=== PATIENT | male | born 1940 | race Caucasian/White ===

== ENCOUNTER 2019-07-26 08:31 | Outpatient (CLI) | payer MEDICARE, BC, SELFPAY ==
[2019-07-26] VITALS (7 sets, daily range): PULSE 65–118; O2SAT 86–90
--- NOTE | ~2019-07-26 | CT_ITS ---
EXAMINATION:CT chest wo con DATE: 07/26/2019 10:11 INDICATION: Interstitial lung disease, unspecified. TECHNIQUE: Computed tomography (CT) of the chest was performed without intravenous contrast. Automate d exposure control and iterative reconstruction technique were employed. The dose-length product (DLP ) was 234.03 mGy-cm. COMPARISON: Chest CT 12/24/2018, 06/15/2010 FINDINGS: There is mild emphysema. The lung volumes are small. There are widespread peripheral reticu lar opacities in the lungs with areas of honeycombing. There are groundglass opacities and airspace o pacities and calcifications associated with interstitial opacities. There is a chronic 5 mm nodule in right upper lobe, likely benign. Calcified right lung nodules and calcified right hilar and mediasti nal lymph nodes are consistent with old granulomatous disease. No pleural effusion. The heart size is normal. There are coronary artery calcifications. No pericardial effusion. There are mildly enlarged noncalcified mediastinal and hilar lymph nodes, likely reactive. There is diffuse hepatic steatosis. There is severe cervical spondylosis and mild thoracic spondylosis. There is a chronic sclerotic les ion in in T3 vertebral body, likely benign. IMPRESSION: 1. Worsened diffuse lung disease, likely a combination of mild emphysema and chronic interstitial sandeep g disease in a pattern of usual interstitial pneumonia (UIP). Reviewed, dictated and finalized at location A. CAL VIDEOGRAPHER IMPRESSION: 1. Worsened diffuse lung disease, likely a combination of mild emphysema and ch ronic interstitial lung disease in a pattern of usual interstitial pneumonia (U IP).
--- NOTE | 2019-07-26 09:34 | PCRCNOTE ---
SPOKE TO ESTEFANY AT ALBERTINA'S OFFICE, SHE DOUBLE CHECKED THE ORDER, HE IS ONLY FOR HOME O2 EVAL TO REQUALIFY FOR HOME O2.
--- NOTE | 2019-07-26 09:47 | HOMEO2EVAL ---
Home Oxygen Evaluation RC: Home Oxygen (O2) Evaluation Start: 07/26/19 09:36 Freq: Status: Active Protocol: RPE Activity Type Activity Date Activity User E-Sign Co-Sign Detail Recorded Client Recorded Date Recorded By Document 07/26/19 09:15 [email or web address] [email or web address] 07/26/19 09:45 DJO Document 07/26/19 09:18 [email or web address] [email or web address] 07/26/19 09:45 DJO Document 07/26/19 09:20 [email or web address] [email or web address] 07/26/19 09:45 DJO Document 07/26/19 09:22 [email or web address] [email or web address] 07/26/19 09:45 DJO Document 07/26/19 09:24 [email or web address] [email or web address] 07/26/19 09:45 DJO Document 07/26/19 09:26 [email or web address] [email or web address] 07/26/19 09:45 DJO Document 07/26/19 09:30 [email or web address] [email or web address] 07/26/19 09:45 DJO 07/26/19 07/26/19 07/26/19 09:15 09:18 09:20 Home O2 Evaluation Test Phase Resting Resting Resting Oxygen Delivery Room Air Nasal Cannula Nasal Cannula Oxygen Flow Rate (L/min) 1 2 Pulse Oximetry (90-100 %) 87 L 87 L 90 Pulse Rate (60-100 beats/min) 65 Home Oxygen Evaluation Comments Treatment Charges O2 Evaluation 07/26/19 07/26/19 07/26/19 09:22 09:24 09:26 Home O2 Evaluation Test Phase Exercise Exercise Exercise Oxygen Delivery Nasal Cannula Nasal Cannula Nasal Cannula Oxygen Flow Rate (L/min) 2 3 4 Pulse Oximetry (90-100 %) 86 L 87 L 90 Pulse Rate (60-100 beats/min) 104 H 110 H 118 H Home Oxygen Evaluation Comments Treatment Charges 07/26/19 09:30 Home O2 Evaluation Test Phase Resting Oxygen Delivery Nasal Cannula Oxygen Flow Rate (L/min) 2 Pulse Oximetry (90-100 %) 90 Pulse Rate (60-100 beats/min) 65 Home Oxygen Evaluation Comments PT REQUIRES 2 AT REST AND 4 WITH EXERTION Treatment Charges
== END 2019-07-26 08:32 | disposition home or self-care (01) ==
PROVIDERS: PCP Family Medicine; Visit Provider Internal Medicine Critical Care Medicine
DX: J84.9 Interstitial pulmonary disease, unspecified (principal); J44.9 Chronic obstructive pulmonary disease, unspecified; J96.11 Chronic respiratory failure with hypoxia; R06.02 Shortness of breath
CPT/HCPCS: 71250; 94618

== ENCOUNTER 2019-08-29 11:27 | Emergency (ER) | payer MEDICARE, BC, SELFPAY ==
[2019-08-29 11:55] VITALS: BP 131/48; PULSE 55; RESP 28; TEMP 36.6; O2SAT 95
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
== END 2019-08-29 12:23 | disposition home or self-care (01) ==
PROVIDERS: Emergency Provider Nurse Practitioner; PCP Family Medicine
DX: H60.313 Diffuse otitis externa, bilateral (principal); H61.23 Impacted cerumen, bilateral; Z87.891 Personal history of nicotine dependence; N40.0 Benign prostatic hyperplasia without lower urinary tract symptoms; Z77.090 Contact with and (suspected) exposure to asbestos; J44.9 Chronic obstructive pulmonary disease, unspecified; F41.9 Anxiety disorder, unspecified; F32.9 Major depressive disorder, single episode, unspecified; E78.00 Pure hypercholesterolemia, unspecified; K21.9 Gastro-esophageal reflux disease without esophagitis; I10 Essential (primary) hypertension; G47.33 Obstructive sleep apnea (adult) (pediatric); I73.9 Peripheral vascular disease, unspecified; E11.42 Type 2 diabetes mellitus with diabetic polyneuropathy; M06.9 Rheumatoid arthritis, unspecified
CPT/HCPCS: 69209; 99213; G0463

== ENCOUNTER 2019-09-17 14:11 | Outpatient (CLI) | payer MEDICARE, BC, SELFPAY ==
[2019-09-17 15:49] LABS: Hepatitis B Surface Antigen Negative (Negative)
[2019-09-17 16:07] LABS: Hepatitis B Surface Anti Res Negative; Hepatitis C Virus Antibody Negative (Negative)
[2019-09-19 03:52] LABS: Hepatitis B Core Ab Total Nonreactive (Nonreactive)
[2019-09-19 21:57] LABS: NIL 0.02 IU/mL; Quantiferon TB Plus, 1T NEGATIVE (NEGATIVE); TB1-NIL <0.00 IU/mL; TB2-NIL 0.01 IU/mL
== END 2019-09-17 14:12 | disposition home or self-care (01) ==
PROVIDERS: PCP Family Medicine; Visit Provider Internal Medicine
DX: M19.90 Unspecified osteoarthritis, unspecified site (principal); M06.9 Rheumatoid arthritis, unspecified
CPT/HCPCS: 36415; 86480; 86704; 86706; 86803; 87340

== ENCOUNTER 2019-09-23 14:41 | Outpatient (CLI) | payer MEDICARE, BC, SELFPAY ==
[2019-09-23 12:40] LABS: Estimated Glomerular Filt Rate > 60
== END 2019-09-23 14:42 | disposition home or self-care (01) ==
LOC: ANHIMG 11-15 14:41
PROVIDERS: PCP Family Medicine; Visit Provider Internal Medicine
DX: M19.90 Unspecified osteoarthritis, unspecified site (principal); M06.9 Rheumatoid arthritis, unspecified
CPT/HCPCS: 36415

== ENCOUNTER 2020-02-18 12:15 | Outpatient (CLI) | payer MEDICARE, BC, SELFPAY ==
--- NOTE | 2020-02-21 13:55 | P.PCNPFT_ITS ---
PFT Interpretation PFT Interpretation: DOS: 02/18/2020 REQUESTING: Dr Hunter REASON FOR TESTING: COPD, shortness of breath PULMONARY FUNCTION TESTS Results are reproducible. Patient showed excellent effort despite difficulty during testing with shortness of breath and chest pain by the end of the procedure. Spirometry: FEV1 63%, FVC 65%, both mildly decreased. Decreased FEV1%. FEF25- 75% is severely decreased 39% predicted and this increased by 50% with bronchodilator. Lung volumes: TLC 64% mild restriction. RV/TLC is normal, no air trapping. Normal airway resistance. Diffusion: DLCO 31% severely decreased. Flow volume loop: Not reproducible IMPRESSION: Mild restrictive defect with severe diffusion impairment. Small airways pattern with good response to bronchodilator. Compared to a prior study 07/13/2017, spirometry is stable, TLC is lower showing progression of restrictive process, now with absence of air trapping. Small airway pattern is new. DLCO was not obtainable last test. This pattern can be seen in ILD and pneumonitis. Clinical correlation recommended. Maddie Hunter MD
== END 2020-02-18 12:16 | disposition home or self-care (01) ==
PROVIDERS: PCP Family Medicine; Visit Provider Internal Medicine Critical Care Medicine
DX: J84.112 Idiopathic pulmonary fibrosis (principal); R94.2 Abnormal results of pulmonary function studies
CPT/HCPCS: 94060; 94726; 94729

== ENCOUNTER 2020-02-27 08:54 | Outpatient (CLI) | payer MEDICARE, BC, SELFPAY ==
[2020-02-27 09:35] LABS: Basophils Percent Auto 0.5 % (0.2-1.2); Eosinophils Absolute Auto 0.1 K/mm3 (0-0.3); Eosinophils Percent Auto 1.2 % (0-4.4); Immature Granulocyte Absolute 0.04 K/mm3 (0.00-0.031); Immature Granulocyte Percent A 0.5 % (0-0.5); Lymphocytes Absolute Auto 2.43 K/mm3 (0.9-3.2); Lymphocytes Percent Auto 31.2 % (18.3-44.2); Mean Corpuscular Hemoglobin 32.2 pg (26-34); Mean Corpuscular Volume 94.6 fl (80-100); Mean Platelet Volume 9.1 fl (7.4-10.4); Monocytes Absolute Auto 0.6 K/mm3 (0.1-0.6); Monocytes Percent Auto 7.7 % (2.6-8.5); Neutrophils Absolute Auto 4.6 K/mm3 (1.3-6.7); Neutrophils Percent Auto 58.9 % (45.5-73.1); Platelet Count Result 220 k/mm3 (150-375); Red Blood Count 4.97 M/mm3 (4.6-6.20); Red Cell Distribution Width 13.5 % (11.5-14.5); White Blood Count 7.8 K/mm3 (4.5-10.0)
[2020-02-27 10:20] LABS: Prostate Specific Antigen 0.6 ng/mL (< OR = 4.0)
[2020-03-03 10:47] LABS: Testosterone Free 11.7 pg/mL (30.0-135.0); Testosterone Total 90 ng/dL (250-1100)
== END 2020-02-27 08:55 | disposition home or self-care (01) ==
LOC: ANHLAB 08:58
PROVIDERS: PCP Family Medicine; Visit Provider Nurse Practitioner Family
DX: R53.83 Other fatigue (principal); E29.1 Testicular hypofunction; N52.9 Male erectile dysfunction, unspecified; N40.0 Benign prostatic hyperplasia without lower urinary tract symptoms; Z13.0 Encounter for screening for diseases of the blood and blood-forming organs and certain disorders involving the immune mechanism
CPT/HCPCS: 36415; 84153; 84402; 84403; 85025

== ENCOUNTER 2020-04-07 11:47 | Outpatient (CLI) | payer MEDICARE, BC, SELFPAY ==
--- NOTE | ~2020-04-07 | XR_ITS ---
XR hip RT min 2V 04/07/2020 12:13 Indication: Right hip pain Procedure: 3 views right hip Comparison: No prior studies for comparison. Findings: There is mild joint space narrowing of the right hip. No fracture or traumatic malalignment . Pelvic rings are intact. There is lower lumbar spondylosis with levocurvature of the lumbar spine. No significant soft tissue abnormality. Impression: 1: Mild osteoarthritis of the right hip. Reviewed, dictated and finalized at location B. Impression: 1: Mild osteoarthritis of the right hip.
== END 2020-04-07 11:48 | disposition home or self-care (01) ==
LOC: ANHIMG 11:55
PROVIDERS: PCP Family Medicine; Visit Provider Nurse Practitioner
DX: M16.11 Unilateral primary osteoarthritis, right hip (principal)
CPT/HCPCS: 73502

== ENCOUNTER 2020-04-11 16:45 | Emergency (ER) | payer MEDICARE, BC, SELFPAY ==
--- NOTE | ~2020-04-11 | XR_ITS ---
EXAMINATION: XR chest 2V EXAM DATE: 04/11/2020 18:05 INDICATION: Shortness of breath, leg swelling, history COPD hypertension and myocardial infarction. TECHNIQUE: Frontal and lateral projections of the chest obtained and reviewed. Comparison is made to prior examination from 06/24/2019. FINDINGS: Extensive abnormal reticulation again noted, most likely patient's chronic interstitial lia ng disease. The cardiomediastinal silhouette is prominent but magnified on this AP technique. Cardiac silhouette is stable in size compared to prior exam. No confluent consolidation, pneumothorax or ple ural effusion suspected. There is aortic arteriosclerosis. There are bony degenerative changes. IMPRESSION: 1. Rather extensive chronic interstitial lung disease. 2. No definite superimposed acute process. Reviewed, dictated and finalized at location A.
--- NOTE | 2020-04-11 16:48 | ECG_ITS ---
Measurements Intervals [place] Rate: 82 P: 51 MN: 201 QRS: -12 QRSD: 90 T: 33 QT: 388 QTc: 454 Interpretive Statements SINUS RHYTHM VENTRICULAR PREMATURE COMPLEX INCOMPLETE RIGHT BUNDLE BRANCH BLOCK BORDERLINE R WAVE PROGRESSION, ANTERIOR LEADS BASELINE ARTIFACT- I, II, III, AVR, AVL, AVF, V1, V4-V6 BORDERLINE ECG Electronically Signed On 04-12-2020 6:55:53 CDT by Michele Buck D.O.
[2020-04-11 17:07] VITALS: BP 117/68; PULSE 90; RESP 23; TEMP 37; O2SAT 96
[2020-04-11 17:08] LABS: Basophils Percent Auto 0.4 % (0.2-1.2); Eosinophils Absolute Auto 0.2 K/mm3 (0-0.3); Eosinophils Percent Auto 1.8 % (0-4.4); Hematocrit 40.6 % (42.0-52.0); Hemoglobin 14.3 g/dL (14.0-18.0); Immature Granulocyte Absolute 0.06 K/mm3 (0.00-0.031); Immature Granulocyte Percent A 0.7 % (0-0.5); Lymphocytes Absolute Auto 1.56 K/mm3 (0.9-3.2); Lymphocytes Percent Auto 17.2 % (18.3-44.2); Mean Corpuscular HGB Conc 35.2 g/dl (32-36); Mean Corpuscular Hemoglobin 33.7 pg (26-34); Mean Corpuscular Volume 95.8 fl (80-100); Mean Platelet Volume 9.2 fl (7.4-10.4); Monocytes Absolute Auto 0.8 K/mm3 (0.1-0.6); Monocytes Percent Auto 9.3 % (2.6-8.5); Neutrophils Absolute Auto 6.4 K/mm3 (1.3-6.7); Neutrophils Percent Auto 70.6 % (45.5-73.1); Platelet Count Result 194 k/mm3 (150-375); Red Blood Count 4.24 M/mm3 (4.6-6.20); Red Cell Distribution Width 12.5 % (11.5-14.5); White Blood Count 9.1 K/mm3 (4.5-10.0)
[2020-04-11] MEDS: ASPIRIN 81 MG CHEWABLE TABLET 324 MG PO (17:19)
[2020-04-11 17:22] LABS: Anion Gap 11 mmol/L (8-16); Blood Urea Nitrogen 8 mg/dL (9-20); Calcium 9.5 mg/dL (8.4-10.2); Carbon Dioxide 30 mmol/L (22-30); Chloride 97 mmol/L (98-107); Estimated CRCL calculation 49 ml/min; Estimated Glomerular Filt Rate > 60; Glucose 119 mg/dL (75-110); Potassium 3.2 mmol/L (3.4-5.0); Sodium 138 mmol/L (137-145)
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
[2020-04-11 17:32] LABS: Troponin I < 0.012 ng/mL (0.000-0.034)
[2020-04-11 17:35] LABS: Alanine Aminotransferase 22 U/L (4-50); Albumin Level 4.1 g/dL (3.5-5.1); Alkaline Phosphatase 79 U/L (38-126); Aspartate Amino Transferase 34 U/L (17-59); Bilirubin,Total 0.9 mg/dL (0.2-1.3)
[2020-04-11 17:41] LABS: Alveolar/Arterial O2 Gradient 99.5 mmHg; Base Excess ABG -0.8 mEq/l (+/-2.0); Fractional Inspired Oxygen 32 %; HCO3 ABG 20.8 mEq/l (22.0-26.0); Oxygen Content ABG 18.9 %vol (16.0-22.0); Oxyhemoglobin 96.4 % THb (90.0-100.0); PCO2 ABG 26.6 mmHg (35.0-45.0); PO2 ABG 97.5 mmHg (80.0-100.0); PO2 FiO2 Ratio Arterial Blood 3.05 %; Total Hemoglobin 13.9 g/dL (12.0-18.0)
[2020-04-11 17:42] LABS: Device NASAL CANNULA; Modified Allen's Test Pass; Site Drawn LEFT RADIAL
[2020-04-11 17:49] LABS: NT Pro B Type Natriuretic Pept 373 PG/ML (5-100)
[2020-04-11] MEDS: HYDROcodone/acetaminophen (*CRX) 10-325 MG TABLET 1 TAB PO (19:15)
[2020-04-11] MEDS: PREGABALIN (*CRX) 75 MG CAPSULE 150 MG PO (19:16)
[2020-04-11] MEDS: POTASSIUM CHLORIDE 20 MEQ TABLET 40 MEQ PO (19:16)
[2020-04-11 19:17] VITALS: BP 139/87; PULSE 78; RESP 23; O2SAT 94
--- NOTE | 2020-04-11 19:17 | ECG_ITS ---
Measurements Intervals [place] Rate: 74 P: 44 VA: 195 QRS: -18 QRSD: 94 T: 30 QT: 394 QTc: 437 Interpretive Statements SINUS RHYTHM POSSIBLE LEFT ATRIAL ENLARGEMENT DELAYED PRECORDIAL R/S TRANSITION BORDERLINE T WAVE ABNORMALITY- INFERIOR LEADS BASELINE ARTIFACT- I, II, III, AVR, AVL, AVF, V1-V6 BORDERLINE ECG Electronically Signed On 04-12-2020 6:59:55 CDT by Michele Buck D.O.
[2020-04-11 20:02] VITALS: BP 140/87; PULSE 81; RESP 19; O2SAT 97
== END 2020-04-11 19:43 | disposition home or self-care (01) ==
PROVIDERS: Emergency Provider Emergency Medicine; PCP Family Medicine
DX: R60.0 Localized edema (principal); I50.9 Heart failure, unspecified; E87.6 Hypokalemia; J61 Pneumoconiosis due to asbestos and other mineral fibers; N40.0 Benign prostatic hyperplasia without lower urinary tract symptoms; E87.1 Hypo-osmolality and hyponatremia; G89.4 Chronic pain syndrome; J43.9 Emphysema, unspecified; M19.90 Unspecified osteoarthritis, unspecified site; K21.9 Gastro-esophageal reflux disease without esophagitis; G47.33 Obstructive sleep apnea (adult) (pediatric); E11.42 Type 2 diabetes mellitus with diabetic polyneuropathy; E11.51 Type 2 diabetes mellitus with diabetic peripheral angiopathy without gangrene; M06.9 Rheumatoid arthritis, unspecified; Z87.891 Personal history of nicotine dependence; I49.3 Ventricular premature depolarization; I45.10 Unspecified right bundle-branch block; J84.9 Interstitial pulmonary disease, unspecified
CPT/HCPCS: 36415; 36600; 71046; 80048; 80076; 82805; 83880; 84484; 85025; 85610; 85730; 93005; 99284; A9270